=== PATIENT | female | born 1990 | race Caucasian/White ===

== ENCOUNTER 2019-09-25 12:16 | Emergency (ER) | payer BC ==
[~2019-09-25] VITALS: Ht 160 cm; Wt 80.7 kg
--- NOTE | 2019-09-25 12:20 | NUR ---
BIBA TAKEN TO BED 7
[2019-09-25 12:22] VITALS: BP 134/92
--- NOTE | 2019-09-25 12:25 | NUR ---
TRIAGE BY ADONAY HAWTHORNE
--- NOTE | 2019-09-25 12:51 | NUR ---
28 YO FEMALE BIBA FOR POSSIBLE OVERDOSE. PT STATES THAT SHE TOOK ABOUT 45ML OF COUGH SYRUP THAT WAS PRESCRIBED FOR HER DAUGHTER. PT STATES THAT SHE HAS DRY MOUTH AND FEELS DROWSY.
--- NOTE | 2019-09-25 13:01 | NUR ---
CALLED [facility]ISON [facility] AND SPOKE WITH ANASTASIYA. WAS ADVISED TO DO EKG AND CHECK FOR INTERVALS. NO MONITORING NEEDED.
[2019-09-25 14:28] VITALS: BP 134/92
--- NOTE | 2019-09-25 14:28 | NUR ---
Patient discharged with v/s stable. Written and verbal after care instructions given and explained. Patient verbalized understanding. Ambulatory with steady gait. All questions addressed prior to discharge. Advised to follow up with PMD.
== END 2019-09-25 14:28 | disposition home or self-care (01) ==
LOC: MED 12:16
DX: T48.3X1A Poisoning by antitussives, accidental (unintentional), initial encounter (principal); R42 Dizziness and giddiness; R05 Cough; Z88.5 Allergy status to narcotic agent; Y92.89 Other specified places as the place of occurrence of the external cause
CPT/HCPCS: 93005; 99283